=== PATIENT | male | born 1950 | race Caucasian/White ===

== ENCOUNTER → 2016-08-20 | Outpatient (CLI) | payer MEDICARE ==
[2016-08-20 09:54] LABS: HEMOGLOBIN 13.1 gm/dl (14.0-17.5); RED BLOOD COUNT 4.35 M/UL (4.20-5.50); WHITE BLOOD COUNT 8.3 K/UL (4.5-11.0)
[2016-08-20 10:17] LABS: BUN/CREATININE RATIO 22 (0-10)
== END ==
LOC: LAB 08:12
PROVIDERS: Internal Medicine
DX: Z12.5 Encounter for screening for malignant neoplasm of prostate (principal); E11.9 Type 2 diabetes mellitus without complications; E78.5 Hyperlipidemia, unspecified; M15.0 Primary generalized (osteo)arthritis; I49.9 Cardiac arrhythmia, unspecified; N18.2 Chronic kidney disease, stage 2 (mild); E66.01 Morbid (severe) obesity due to excess calories; E55.9 Vitamin D deficiency, unspecified; I12.9 Hypertensive chronic kidney disease with stage 1 through stage 4 chronic kidney disease, or unspecified chronic kidney disease
CPT/HCPCS: 36415; 80053; 80061; 82043; 82570; 83036; 83970; 84439; 84443; 85027; G0103

== ENCOUNTER → 2020-10-04 | Outpatient (CLI) | payer MEDICARE, OTHER ==
[~2020-10-04] MED LIST: GEMFIBROZIL600 MG PO; HYDROCODON-ACE1 EAC4 PO; LEVEMIR100 UNIT/1 SQ; LOPRESSOR50 MG PO; LOW DOSE ASPIRI81 MG PO; METFORMIN HCL500 MG PO; NOVOLOG FL100 UNIT/1 INJ; PRAVASTATIN SOD20 MG PO; PROTONIX 40 MG40 M1 PO; RELISTOR150 MG PO; SPIRONOLACTONE1 EACH PO; ZESTRIL30 MG PO
[2020-10-04 09:24] LABS: BUN/CREATININE RATIO 27 (0-10)
[2020-10-05 11:14] LABS: CREATININE, URINE 77.9 mg/dL (Not Estab.)
== END ==
LOC: LAB 08:40
PROVIDERS: Internal Medicine Nephrology
DX: N18.30 Chronic kidney disease, stage 3 unspecified (principal)
CPT/HCPCS: 36415; 80053; 82043; 82570

== ENCOUNTER 2020-11-30 07:48 | Emergency (ER) | payer MEDICARE, OTHER ==
[~2020-11-30 07:48] MED LIST changes: -HYDROCODON-ACE1 EAC4 PO; -RELISTOR150 MG PO
[2020-11-30 09:21] LABS: HEMOGLOBIN 12.9 gm/dl (14.0-17.5); RED BLOOD COUNT 4.16 M/UL (4.20-5.50); WHITE BLOOD COUNT 9.8 K/UL (4.5-11.0)
[2020-11-30] MEDS ORDERED: HYDROCODON-ACE1 EAC4 PO ×4 (10:46→11:11)
== END 2020-11-30 12:45 | disposition home or self-care (01) ==
LOC: ER1 07:48
PROVIDERS: Emergency Medicine
DX: S32.019A Unspecified fracture of first lumbar vertebra, initial encounter for closed fracture (principal); I10 Essential (primary) hypertension; E11.9 Type 2 diabetes mellitus without complications; W20.8XXA Other cause of strike by thrown, projected or falling object, initial encounter
CPT/HCPCS: 72131; 72192; 80048; 85025; 85652; 86140; 96374; 96375; 99284; J2270; J2405

== ENCOUNTER 2020-12-10 09:12 | Emergency (ER) | payer MEDICARE, OTHER ==
[~2020-12-10 09:12] MED LIST changes: +HYDROCODON-ACE1 EAC4 PO
[2020-12-10] MEDS ORDERED: RELISTOR150 MG PO (12:38)
== END 2020-12-10 13:40 | disposition home or self-care (01) ==
LOC: ER1 09:12
DX: K59.00 Constipation, unspecified (principal); E11.9 Type 2 diabetes mellitus without complications; I10 Essential (primary) hypertension; Z79.899 Other long term (current) drug therapy
CPT/HCPCS: 99283

== ENCOUNTER → 2021-02-05 | Outpatient (CLI) | payer MEDICARE, OTHER ==
[~2021-02-05] MED LIST changes: +RELISTOR150 MG PO
[2021-02-06 09:13] LABS: CREATININE, URINE 103.5 mg/dL (Not Estab.)
== END ==
LOC: LAB 07:26
PROVIDERS: Internal Medicine Nephrology
DX: N18.30 Chronic kidney disease, stage 3 unspecified (principal)
CPT/HCPCS: 36415; 80053; 82043; 82570

== ENCOUNTER → 2021-08-21 | Outpatient (CLI) | payer MEDICARE, OTHER | LOC: LAB 12:32 | PROVIDERS: Internal Medicine Nephrology | DX: N18.31 Chronic kidney disease, stage 3a (principal) | CPT/HCPCS: 36415; 80048; 82043; 82570; 84156 ==

== ENCOUNTER → 2021-12-04 | Outpatient (CLI) | payer MEDICARE, OTHER ==
[2021-12-05 10:14] LABS: CREATININE, URINE 77.8 mg/dL (Not Estab.)
== END ==
LOC: LAB 09:18
PROVIDERS: Internal Medicine Nephrology
DX: N17.9 Acute kidney failure, unspecified (principal)
CPT/HCPCS: 36415; 80048; 82043; 82570; 84156

== ENCOUNTER → 2022-02-07 | Outpatient (CLI) | payer MEDICARE, OTHER | LOC: RAD 12:05 | DX: Z53.9 Procedure and treatment not carried out, unspecified reason (principal) | CPT/HCPCS: 71046 ==